=== PATIENT | male | born 1995 ===

== ENCOUNTER 2017-02-03 16:46 | Emergency (ER) | payer SELFPAY ==
[2017-02-03 17:02] VITALS: BP 145/79; PULSE 80; RESP 18; TEMP 98.1; O2SAT 99
[2017-02-03] MEDS ORDERED: Sodium Chloride 0.9% 1,000 ML IV STA (17:45)
--- NOTE | 2017-02-03 18:14 | ED PDOC ---
HPI: Abdomen Time Seen by Provider: 02/03/17 17:22 Chief Complaint (Nursing): GI Problem Chief Complaint (Provider): GI Problem History Per: Patient History/Exam Limitations: no limitations Current Symptoms Are (Timing): Still Present Additional Complaint(s): 21 y/o male presents to the emergency department with a complaint of abdominal pain to the center region, vomiting, and headache since this morning. Admits to having some alcoholic drinks last night with vomiting episodes. Reports vomit was non-bloody and non-bilious. Denies fever and diarrhea. Past Medical History Reviewed: Historical Data, Nursing Documentation, Vital Signs Vital Signs: Last Vital Signs Temp 98.1 F 02/03/17 16:58 Pulse 80 02/03/17 16:58 Resp 18 02/03/17 16:58 BP 145/79 02/03/17 16:58 Pulse Ox 99 02/04/17 03:16 - Medical History PMH: No Chronic Diseases - Surgical History Surgical History: No Surg Hx - Family History Family History: States: Unknown Family Hx - Social History Alcohol: Occasional - Allergies Allergies/Adverse Reactions: Allergies Allergy/AdvReac Type Severity Reaction Status Date / Time No Known Allergies Allergy Verified 02/03/17 16:57 Review of Systems ROS Statement: Except As Marked, All Systems Reviewed And Found Negative (As per HPI, otherwise negative) Constitutional: Negative for: Fever Gastrointestinal: Positive for: Vomiting, Abdominal Pain. Negative for: Diarrhea, Hematemesis (non-bilious) Neurological: Positive for: Headache Physical Exam - Reviewed Nursing Documentation Reviewed: Yes Vital Signs Reviewed: Yes - Physical Exam Appears: Positive for: Non-toxic, Uncomfortable Head Exam: Positive for: ATRAUMATIC, NORMAL INSPECTION, NORMOCEPHALIC Skin: Positive for: Normal Color, Warm, Dry Eye Exam: Positive for: EOMI Cardiovascular/Chest: Positive for: Regular Rate, Rhythm. Negative for: Murmur Respiratory: Positive for: Normal Breath Sounds. Negative for: Accessory Muscle Use, Wheezing, Respiratory Distress Gastrointestinal/Abdominal: Positive for: Soft, Tenderness (LLQ). Negative for : Normal Exam Extremity: Positive for: Normal ROM. Negative for: Pedal Edema Neurologic/Psych: Positive for: Alert, Oriented (x3) - Laboratory Results Result Diagrams: 02/03/17 18:10 02/03/17 18:10 - ECG O2 Sat by Pulse Oximetry: 99 (RA) Pulse Ox Interpretation: Normal Medical Decision Making Medical Decision Making: Time: 1744 Initial Impression: Abdominal pain and vomiting differential include pancreatitis, appendicitis, and diverticulitis Initial Plan: --CMP --Drug Screen, Urine --Lipase --CBC w/ diff --Pepcid 20 mg IVP --Sodium Chloride 1L IV --Zofran 4 mg IV --Reevaluation Time: 1809 --WBC: 17.4 (High) --Urine Canniboids Screen: Positive (H) Time: 1858 --Abd & Pelvis CT --Iohexol 50 ml PO Time: 1899 --Patient transferred to Dr. Ness --Pending CT and reassessment. Scribe~Attestation: Documented by Jeanne Murrieta, acting as a scribe for Reyna Walters MD. Provider Scribe~Attestation: All medical record entries made by the Scribe were at my direction and personally dictated by me. I have reviewed the chart and agree that the record accurately reflects my personal performance of the history, physical exam, medical decision making, and the department course for this patient. I have also personally directed, reviewed, and agree with the discharge instructions and disposition. Disposition - Clinical Impression Clinical Impression: Abdominal pain - Patient ED Disposition Is Patient to be Admitted: Transfer of Care Doctor Will See Patient In The: Office Counseled Patient/Family Regarding: Studies Performed, Diagnosis, Need For Followup - Disposition Referrals: [facility] [Outside] [facility] [Outside] Disposition: Transfer of Care (Dr. ness) Disposition Time: 19:00 Condition: STABLE Additional Instructions: follow up with your primary doctor for your back findings on the CT. follow up in 2 days return to the ED with any worsening or concerning symptoms Instructions: Abdominal Pain (ED) Patient Signed Over To: Jr Ness
[2017-02-03 18:33] LABS: ALKALINE PHOSPHATASE 63 U/L (38-126); ALT/SGPT 62 U/L (21-72); AST/SGOT 33 U/L (17-59); BILIRUBIN,TOTAL 0.9 mg/dl (0.2-1.3); BLOOD UREA NITROGEN 17 mg/dl (9-20); CALCIUM 10.3 mg/dL (8.4-10.2); CARBON DIOXIDE 25 mmol/L (22-30); CHLORIDE 102 mmol/L (98-107); GFR AFRICAN-AMERICAN > 60; GLUCOSE,RANDOM 117 mg/dL (75-110); LIPASE 47 U/L (23-300); POTASSIUM 4.4 MMOL/L (3.6-5.0); SODIUM 141 mmol/l (132-148)
[2017-02-03 18:34] LABS: ALB/GLOB RATIO 1.5 (1.0-2.1); BASO % 0.2 % (0.0-2.0); HEMATOCRIT 46.1 % (35.0-51.0); LYMPH # 0.9 K/uL (1.0-4.3); LYMPH % 5.4 % (20.0-40.0); MEAN CELL VOLUME 90.6 fl (80.0-94.0); MEAN CORPUSCULAR HGB CONC 34.2 g/dL (33.0-37.0); MEAN PLATELET VOLUME 9.3 fl (7.2-11.7); MONO # 0.3 K/uL (0.0-0.8); MONO % 1.8 % (0.0-10.0); NEUT # 16.1 K/uL (1.8-7.0); NEUT % 92.6 % (50.0-75.0); PLATELET COUNT 288 K/uL (130-400); RED CELL DISTRIBUTION WIDTH 13.3 % (11.5-14.5); WHITE BLOOD COUNT 17.4 K/uL (4.8-10.8)
[2017-02-03] MEDS ORDERED: Iohexol 240 (50 ml) PO ONE (19:00)
[2017-02-03] MEDS ORDERED: Iohexol 240 (50 ml) ONE (19:29)
--- NOTE | 2017-02-03 19:45 | ED PDOC ---
- Laboratory Results Result Diagrams: 02/03/17 18:10 02/03/17 18:10 - ECG O2 Sat by Pulse Oximetry: 99 (RA) Pulse Ox Interpretation: Normal Medical Decision Making Medical Decision Making: Time: 1899 --Patient endorsed from Dr. Walters to me. --Pending abdomina and pelvis CT and reassessment. Time: 2152 --Abd/Pelvis CT FINDINGS: Lower thorax: No acute findings. ABDOMEN: Liver: There is fatty infiltration of the liver. Gallbladder and bile ducts: Unremarkable. No calcified stones. No ductal dilation. Pancreas: Unremarkable. No mass. No ductal dilation. Spleen: Unremarkable. No splenomegaly. Adrenals: Unremarkable. No mass. Kidneys and ureters: Unremarkable. No solid mass. No hydronephrosis. Stomach and bowel: Unremarkable. No obstruction. No mucosal thickening. Appendix: A normal appendix is seen. PELVIS: Bladder: Unremarkable. No mass. Reproductive: Unremarkable as visualized. ABDOMEN and PELVIS: Intraperitoneal space: Unremarkable. No free air. No significant fluid collection. Bones/joints: Bilateral spondylolysis of L5 with slight anterolisthesis. No acute fracture. No dislocation. Soft tissues: Mild left gynecomastia. Minimal fat filled umbilical hernia. Vasculature: Unremarkable. No abdominal aortic aneurysm. Lymph nodes: Unremarkable. No enlarged lymph nodes. IMPRESSION: 1. Fatty infiltration of the liver. 2. Bilateral spondylolysis of L5 with slight anterolisthesis. 3. Otherwise negative CT abdomen/pelvis. A normal appendix is seen. Time: 2246 --Patient was made aware of incidental findings on CT. --Follow up with your primary doctor for your back findings on the CT. follow up in 2 days return to the ED with any worsening or concerning symptoms Patient is medically stable, and requires no further treatment in the ED at this time. Patient will be discharged home. Counseling was provided and all questions were answered regarding diagnosis and need for follow up with referred clinics. There is agreement to discharge plan. Return if symptoms persist or worsen. Clinical Impression: Abdominal pain Scribe~Attestation: Documented by Jeanne Murrieta, acting as a scribe for Jr Diaz MD. Provider Scribe~Attestation: All medical record entries made by the Scribe were at my direction and personally dictated by me. I have reviewed the chart and agree that the record accurately reflects my personal performance of the history, physical exam, medical decision making, and the department course for this patient. I have also personally directed, reviewed, and agree with the discharge instructions and disposition. Disposition Counseled Patient/Family Regarding: Studies Performed, Diagnosis, Need For Followup - Clinical Impression Clinical Impression: Abdominal pain - POA Present On Arrival: None - Disposition Referrals: [facility] [Outside] [facility] [Outside] Disposition: Routine/Home Disposition Time: 22:35 Condition: IMPROVED Additional Instructions: follow up with your primary doctor for your back findings on the CT. follow up in 2 days return to the ED with any worsening or concerning symptoms Instructions: Abdominal Pain (ED) Forms: [employer] (K[place]akh)
[2017-02-03 20:26] LABS: BASOPHIL 1 % (0-2); NEUTROPHIL 89 % (42-75); TOTAL CELLS COUNTED 100
[2017-02-03] MEDS ORDERED: Sodium Chloride 0.9% 50 ML IV ONE (20:30)
[2017-02-03] MEDS ORDERED: Iohexol 300 100 ML IJ ONE (20:30)
--- NOTE | 2017-02-04 09:17 | CT ---
PROCEDURE: CT Abdomen and Pelvis with contrast HISTORY: abdominal pain COMPARISON: None. TECHNIQUE: Contrast dose: 98 mL Omnipaque 300 Radiation dose: Total exam DLP = 806.6 mGy-cm. This CT exam was performed using one or more of the following dose reduction techniques: Automated exposure control, adjustment of the mA and/or kV according to patient size, and/or use of iterative reconstruction technique. FINDINGS: LOWER THORAX: Unremarkable. LIVER: Hepatic steatosis. No gross lesion or ductal dilatation. GALLBLADDER AND BILE DUCTS: Unremarkable. PANCREAS: Unremarkable. No gross lesion or ductal dilatation. SPLEEN: Unremarkable. ADRENALS: Unremarkable. No mass. KIDNEYS AND URETERS: Unremarkable. No hydronephrosis. No solid mass. VASCULATURE: Unremarkable. No aortic aneurysm. BOWEL: Unremarkable. No obstruction. No gross mural thickening. APPENDIX: Normal appendix. PERITONEUM: Unremarkable. No free fluid. No free air. LYMPH NODES: Unremarkable. No enlarged lymph nodes. BLADDER: Unremarkable. REPRODUCTIVE: Unremarkable. BONES: Bilateral L5 spondylolysis with trace anterolisthesis. OTHER FINDINGS: None. IMPRESSION: No acute abdominal pelvic pathology.
== END 2017-02-03 22:57 | disposition home or self-care (01) ==
LOC: H.ER 16:46
DX: K76.0 Fatty (change of) liver, not elsewhere classified (principal)
CPT/HCPCS: 74177; 80053; 83690; 85025; 96374; 99283; G0480; J2405; J7040; Q9966; Q9967